=== PATIENT | female | born 2000 | race Caucasian/White ===

== ENCOUNTER 2024-06-08 09:33 | Emergency (ER) | payer MEDICAID ==
[~2024-06-08] VITALS: Ht 167.6 cm; Wt 77.0 kg
[2024-06-08 09:51] VITALS: O2SAT 99
[2024-06-08 10:18] LABS: BASOPHILS % 0.5 % (0.0-2.0); EOSINOPHILS % 0.7 % (0.0-5.0); HEMATOCRIT. 38.9 % (36.0-48.0); LYMPHOCYTES % 24.7 % (20.0-50.0); MEAN CORPUSCULAR HEMOGLOBIN 32.6 pg (28.0-32.0); MEAN CORPUSCULAR HGB CONC 33.5 g/dL (31.0-37.0); MEAN CORPUSCULAR VOLUME 97.4 fL (81.0-99.0); MEAN PLATELET VOLUME 7.3 fl (7.4-10.4); NEUTROPHILS % 68.1 % (40.0-76.0); PLATELET 331 x1000/uL (130-400); RED BLOOD CELL COUNT 3.99 mill/uL (4.2-5.4); RED CELL DISTRIBUTION WIDTH 13.8 % (11.6-14.6); WHITE BLOOD COUNT 13.4 x1000/uL (4.5-11.0)
[2024-06-08 10:24] LABS: CHLORIDE 108 mEq/L (98-107); POTASSIUM 4.6 mEq/L (3.5-5.1); SODIUM 137 mEq/L (136-145)
[2024-06-08 10:25] LABS: CARBON DIOXIDE 24 mEq/L (21-32)
[2024-06-08 10:30] LABS: CREATININE 0.8 mg/dL (0.6-1.0); GLUCOSE 103 mg/dL (70-105); UREA NITROGEN BLOOD 17 mg/dL (9-23)
[2024-06-08 10:31] LABS: ALANINE AMINOTRANSFERASE 35 IU/L (10-49); ALBUMIN 4.2 g/dL (3.2-4.8); ASPARTATE AMINOTRANSFERASE 19 IU/L (<34)
[2024-06-08 10:32] LABS: BILIRUBIN TOTAL 0.4 mg/dL (0.1-1.0)
[2024-06-08] MEDS: ONDANSETRON 4MG ODT PO STA (10:32)
[2024-06-08] MEDS: MAGNESIUM/ALUMINUM HYDROXIDE/SIMETHICONE 30ML UDC PO STA (10:32)
[2024-06-08 10:33] LABS: BILIRUBIN DIRECT < 0.1 mg/dL (<=3.0)
[2024-06-08 10:45] LABS: HCG SCREEN NEGATIVE
[2024-06-08] MEDS: ACETAMINOPHEN 325MG TABLET PO ONE (10:45)
[2024-06-08 10:56] LABS: CLARITY URINE CLEAR (CLEAR); COLOR URINE YELLOW (YELLOW); GLUCOSE URINE NEGATIVE (NEGATIVE); KETONES URINE NEGATIVE (NEGATIVE); LEUKOCYTE ESTERASE URINE TRACE (NEGATIVE); NITRITE URINE NEGATIVE (NEGATIVE); OCCULT BLOOD URINE NEGATIVE (NEGATIVE); PROTEIN URINE NEGATIVE (NEGATIVE); SPECIFIC GRAVITY URINE 1.038 (1.005-1.030)
[2024-06-08 11:54] LABS: MUCUS URINE 2+ /lpf (< = 2+); SQUAMOUS EPITHELIAL CELL URINE 2+ /lpf (RARE/1+)
[2024-06-08 12:02] LABS: RBC URINE 0-2 /hpf (0-2)
[2024-06-08 12:03] LABS: BACTERIA URINE TRACE
[2024-06-08] MEDS ORDERED: CEFP200T13 MT (13:02)
[2024-06-08 13:29] VITALS: BP 124/60; PULSE 70; RESP 15; TEMP 37.28076; O2SAT 99
== END 2024-06-08 13:30 | disposition home or self-care (01) ==
LOC: ER 09:39
DX: N39.0 Urinary tract infection, site not specified (principal); B34.9 Viral infection, unspecified; Z98.890 Other specified postprocedural states; Z88.6 Allergy status to analgesic agent
CPT/HCPCS: 99285; 74176; 71045; 80076; 80048; 81003; 81025; 84703; 83690; 85025; 36415; 93005; Q0162